=== PATIENT | female | born 1985 | race African-American/Black ===

== ENCOUNTER 2016-06-04 22:10 | Emergency (ER) | payer SELFPAY ==
[2015-11-28 18:48] VITALS: BP 123/65
== END 2016-06-04 22:50 | disposition left against medical advice (07) ==
LOC: ER 22:10
DX: R11.2 Nausea with vomiting, unspecified (principal); Z53.21 Procedure and treatment not carried out due to patient leaving prior to being seen by health care provider

== ENCOUNTER 2016-06-05 02:39 | Emergency (ER) | payer SELFPAY ==
[~2016-06-05] VITALS: Ht 157.5 cm; Wt 90.7 kg
[2016-06-05] MEDS ORDERED: IV NORMAL SALINE 1000ML BAG 1,000 ML IV SCH (03:30)
[2016-06-05 03:38] LABS: BASO # 0.1 x10^3/uL (0.0-0.2); BASO % 1 % (0-3); EOS % 0 % (0-3); HEMATOCRIT 45.1 % (36.0-47.0); LYMPH % 24 % (24-48); MEAN CORPUSCULAR HEMOGLOBIN 30 pg (25-35); MEAN CORPUSCULAR HGB CONC 33 g/dL (31-37); MEAN CORPUSCULAR VOLUME 90 fL (79-100); MONO % 8 % (0-9); NEUT % 67 % (31-73); PLATELET COUNT 399 x10^3/uL (140-400); RED CELL DISTRIBUTION WIDTH 15.6 % (11.5-14.5); WHITE BLOOD COUNT 16.8 x10^3/uL (4.0-11.0)
[2016-06-05 03:54] LABS: BILIRUBIN,URINE NEGATIVE (NEG); GLUCOSE,URINE NEGATIVE (NEG); NITRITE,URINE NEGATIVE (NEG); PROTEIN,URINE NEGATIVE (NEG-TRACE); UROBILINOGEN,URINE 0.2 mg/dL (0.2 mg/dL)
[2016-06-05 03:56] LABS: ALBUMIN 4.7 g/dL (3.4-5.0); CALCIUM 10.1 mg/dL (8.5-10.1); DIRECT BILIRUBIN 0.2 mg/dL (0.0-0.2); GFR 79.9; TOTAL BILIRUBIN 0.6 mg/dL (0.2-1.0); TOTAL PROTEIN 10.2 g/dL (6.4-8.2)
[2016-06-05 03:58] LABS: POTASSIUM 2.9 mmol/L (3.5-5.1)
[2016-06-05 03:59] LABS: BARBITURATES NEG (NEG); BENZODIAZEPINES NEG (NEG); CANNABINOIDS NEG (NEG); COCAINE NEG (NEG); ETHANOL, URINE NEG (NEG); METHADONE NEG (NEG); OPIATES NEG (NEG); PHENCYCLIDINE NEG (NEG)
[2016-06-05 04:09] LABS: BACTERIA,URINE FEW /HPF (0-FEW)
[2016-06-05 04:10] LABS: SQUAMOUS EPITHELIAL CELL,UR MOD /LPF; YEAST,URINE PRESENT /HPF
[2016-06-05] MEDS ORDERED: LORAZEPAM 2 MG/ML VIAL IV ONE (04:30)
[2016-06-05] MEDS ORDERED: POTASSIUM CHLORIDE 20 MEQ TABLET.ER. PO ONE (04:30)
--- NOTE | 2016-06-05 05:34 | PHYS DOC ---
Past Medical History Past Medical History: Asthma Past Surgical History: Other Additional Past Surgical Histo: TERATOMA Alcohol Use: Occasionally Drug Use: Marijuana Adult General Chief Complaint Chief Complaint: HEADACHE HPI HPI Patient is a 30 year old female who presents with complaint of lightheadedness and anxiety. Patient states that for the past 3 days she has been drinking large amounts of alcohol. Patient is concerned that she may have been given something else during that time. Due to worsening symptoms she came to the emergency department for evaluation. Patient states that she is having dizziness and intermittent blurring of vision. Patient states that this worsens when she tries to stand. Patient states that the symptoms resolved while at rest. Patient denies any chest pain or shortness of breath. Patient states that she is feeling "tingly all over." Review of Systems Review of Systems Constitutional: Lightheadedness, dizziness, Denies fever or chills [] Eyes: Intermittent blurry vision, denies redness or eye pain [] HENT: Denies nasal congestion or sore throat [] Respiratory: Denies cough or shortness of breath [] Cardiovascular: Denies chest pain or edema [] GI: Denies abdominal pain, nausea, vomiting, bloody stools or diarrhea [] : Denies dysuria or hematuria [] Musculoskeletal: Denies back pain or joint pain [] Integument: Denies rash or skin lesions [] Neurologic: Headache, denies focal weakness [] Current Medications Current Medications Current Medications Medications (Trade) Dose Ordered Sig/Delmy Start Time Stop Time Status Last Admin Dose Admin Lorazepam (Ativan) 1 mg 1X ONCE 06/05/16 04:30 06/05/16 04:31 DC 06/05/16 04:06 1 MG Potassium Chloride (Klor-Con) 40 meq 1X ONCE 06/05/16 04:30 06/05/16 04:31 DC 06/05/16 04:06 40 MEQ Sodium Chloride (Iv Sodium Chloride 0.9% 1000ml Bag) 1,000 ml @ 1,000 mls/hr Q1H 06/05/16 03:30 06/05/16 04:29 DC 06/05/16 03:45 1,000 MLS/HR Allergies Allergies Allergies Coded Allergies Type Severity Reaction Last Updated Verified No Known Drug Allergies 07/18/15 No Physical Exam Physical Exam Constitutional: Alert, afebrile, appears anxious. [] HENT: Normocephalic, atraumatic, bilateral external ears normal, oropharynx dry , no oral exudates, nose normal. [] Eyes: PERRLA, EOMI, conjunctiva normal, no discharge. [] Neck: Normal range of motion, no tenderness, supple, no stridor. [] Cardiovascular: Tachycardia, regular rhythm, no murmurs [] Lungs & Thorax: Bilateral breath sounds clear to auscultation [] Abdomen: Bowel sounds normal, soft, no tenderness, no masses, no pulsatile masses. [] Skin: Warm, dry, no erythema, no rash. [] Back: No tenderness, no CVA tenderness. [] Extremities: No tenderness, no cyanosis, no clubbing, ROM intact, no edema. [] Neurologic: Alert and oriented X 3, normal motor function, normal sensory function, no focal deficits noted. [] Current Patient Data Vital Signs Vital Signs Date Time Temp Pulse Resp B/P Pulse Ox O2 Delivery O2 Flow Rate FiO2 06/05/16 03:17 97.9 135 22 131/92 96 Room Air 97.9 Lab Values Laboratory Tests Test 06/05/16 03:19 06/05/16 03:20 06/05/16 03:26 POC Urine HCG, Qualitative Hcg negative (Negative) White Blood Count 16.8x10^3/uL (4.0-11.0) H Red Blood Count 5.00x10^6/uL (3.50-5.40) Hemoglobin 15.0g/dL (12.0-15.5) Hematocrit 45.1% (36.0-47.0) Mean Corpuscular Volume 90fL (79-100) Mean Corpuscular Hemoglobin 30pg (25-35) Mean Corpuscular Hemoglobin Concent 33g/dL (31-37) Red Cell Distribution Width 15.6% (11.5-14.5) H Platelet Count 399x10^3/uL (140-400) Neutrophils (%) (Auto) 67% (31-73) Lymphocytes (%) (Auto) 24% (24-48) Monocytes (%) (Auto) 8% (0-9) Eosinophils (%) (Auto) 0% (0-3) Basophils (%) (Auto) 1% (0-3) Neutrophils # (Auto) 11.2x10^3uL (1.8-7.7) H Lymphocytes # (Auto) 4.0x10^3/uL (1.0-4.8) Monocytes # (Auto) 1.3x10^3/uL (0.0-1.1) H Eosinophils # (Auto) 0.0x10^3/uL (0.0-0.7) Basophils # (Auto) 0.1x10^3/uL (0.0-0.2) Urine Collection Type Unknown Urine Color Yellow Urine Clarity Clear Urine pH 7.0 Urine Specific [place] 1.010 Urine Protein Negativemg/dL (NEG-TRACE) Urine Glucose (UA) Negativemg/dL (NEG) Urine Ketones (Stick) >=80mg/dL (NEG) Urine Blood Large (NEG) Urine Nitrite Negative (NEG) Urine Bilirubin Negative (NEG) Urine Urobilinogen Dipstick 0.2mg/dL (0.2 mg/dL) Urine Leukocyte Esterase Negative (NEG) Urine RBC 1-2/HPF (0-2) Urine WBC 5-10/HPF (0-4) Urine Squamous Epithelial Cells Mod/LPF Urine Bacteria Few/HPF (0-FEW) Urine Mucus Mod/LPF Urine Yeast Present/HPF Sodium Level 137mmol/L (136-145) Potassium Level 2.9mmol/L (3.5-5.1) *L Chloride Level 97mmol/L (98-107) L Carbon Dioxide Level 24mmol/L (21-32) Anion Gap 16 (6-14) H Blood Urea Nitrogen 9mg/dL (7-20) Creatinine 1.0mg/dL (0.6-1.0) Estimated GFR (Cockcroft-Gault) 79.9 Glucose Level 114mg/dL (70-99) H Calcium Level 10.1mg/dL (8.5-10.1) Magnesium Level 2.0mg/dL (1.8-2.4) Total Bilirubin 0.6mg/dL (0.2-1.0) Direct Bilirubin 0.2mg/dL (0.0-0.2) Aspartate Amino Transferase (AST) 18U/L (15-37) Alanine Aminotransferase (ALT) 28U/L (14-59) Alkaline Phosphatase 61U/L (46-116) Total Protein 10.2g/dL (6.4-8.2) H Albumin 4.7g/dL (3.4-5.0) Ethyl Alcohol Level < 10mg/dL (0-10) Urine Opiates Screen Neg (NEG) Urine Methadone Screen Neg (NEG) Urine Barbiturates Neg (NEG) Urine Phencyclidine Screen Neg (NEG) Urine Amphetamine/Methamphetamine Pos (NEG) Urine Benzodiazepines Screen Neg (NEG) Urine Cocaine Screen Neg (NEG) Urine Cannabinoids Screen Neg (NEG) Urine Ethyl Alcohol Neg (NEG) Laboratory Tests 06/05/16 03:20 Laboratory Tests 06/05/16 03:20 EKG EKG Interpreted by me: Heart rate 127, sinus tachycardia, normal intervals, normal axis, no acute ST/T-wave abnormalities present [] Radiology/Procedures Radiology/Procedures One view AP chest x-ray interpreted by me: No infiltrate, no effusions, normal cardiac silhouette [] Course & Med Decision Making Course & Med Decision Making Pertinent Labs and Imaging studies reviewed. (See chart for details) Patient was given IV fluids and IV Ativan in the emergency department. Patient was given oral potassium. Patient was found to have methamphetamine in her system which is causing her symptoms. Informed patient of the presence of methamphetamine. The patient maintains that she does not know how this got into her system but states that this may been given to her by her "man friend" that she had been with drinking alcohol the past 3 days. The patient states that she is feeling better with treatment. The patient will be discharged home with recommendation to abstain from any further substance abuse. Advise follow-up in 2 days with primary doctor if symptoms are not improving and return to emergency department for any worsening symptoms. Patient voiced understanding and in agreement with treatment plan. Dragon Disclaimer Dragon Disclaimer This electronic medical record was generated, in whole or in part, using a voice recognition dictation system. Departure Departure Impression: Primary Impression: Methamphetamine abuse Additional Impressions: Dehydration Hypokalemia Disposition: 01 HOME, SELF-CARE Condition: IMPROVED Referrals: NO PCP (PCP) Patient Instructions: Dehydration, Adult, Hypokalemia, Methamphetamine Abuse, Complications Additional Instructions: Follow-up with your primary doctor in 2 days. Return to the emergency department for any worsening symptoms. Problem Qualifiers TEDDY TILLMAN MD Jun 05, 2016 05:34
[2016-06-05] MEDS ORDERED: IV NORMAL SALINE 500ML BAG 500 ML IV ONE (06:00)
[2016-06-05 06:10] VITALS: BP 118/75
--- NOTE | 2016-06-05 06:22 | EKG ---
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
--- NOTE | 2016-06-05 07:05 | RAD ---
Portable chest, 06/05/2016: History: Tachycardia Comparison is made to a study from 11/28/2015. The heart size and pulmonary vascularity are normal. The lungs are clear. There is no evidence of pleural fluid. IMPRESSION: No acute cardiopulmonary abnormality is detected.
== END 2016-06-05 06:30 | disposition home or self-care (01) ==
LOC: ER 02:39
DX: E86.0 Dehydration (principal); E87.6 Hypokalemia; F15.10 Other stimulant abuse, uncomplicated; R42 Dizziness and giddiness; F12.10 Cannabis abuse, uncomplicated; J45.909 Unspecified asthma, uncomplicated; R51 Headache
CPT/HCPCS: 36415; 71010; 80048; 80076; 81001; 81025; 83735; 85027; 87086; 93005; 96360; 96361; 99285; G0480; G0481; J2060; J7030; J7040

== ENCOUNTER 2016-11-22 17:32 | Emergency (ER) | payer SELFPAY ==
[~2016-11-22] VITALS: Ht 162.6 cm; Wt 86.2 kg
[2016-11-22 18:10] VITALS: BP 127/61
[2016-11-22] MEDS ORDERED: LIDOCAINE 1% / SOD BICARB 8.4% 20 ML VIAL. IJ ONE (18:45)
[2016-11-22] MEDS ORDERED: DIPHTH,PERTUSS(ACELL),TET TOX 0.5 ML DISP.SYRIN. VAX IM ONE (18:45)
[2016-11-22] MEDS ORDERED: SULF1TAB24 PO (19:25)
--- NOTE | 2016-11-22 19:25 | PHYS DOC ---
Past Medical History Past Medical History: Asthma Past Surgical History: Other Additional Past Surgical Histo: TERATOMA Alcohol Use: Occasionally Drug Use: Marijuana Adult General Chief Complaint Chief Complaint: BREAST PROBLEM HPI HPI Patient is a 31 year old female who presents with an abscess on the right breast for one week. Patient denies any fever. Denies any drainage from the area. She states she has previous history of abscesses. Review of Systems Review of Systems Constitutional: Denies fever or chills [] Musculoskeletal: Denies back pain or joint pain [] Integument: abscess on the right breast Neurologic: Denies headache, focal weakness or sensory changes [] Current Medications Current Medications Current Medications Medications (Trade) Dose Ordered Sig/Delmy Start Time Stop Time Status Last Admin Dose Admin Diphtheria/ Tetanus/Acell Pertussis (Boostrix) 0.5 ml ONCE ONCE 11/22/16 18:45 11/22/16 18:46 DC 11/22/16 18:54 0.5 ML Lidocaine/Sodium Bicarbonate (Buffered Lidocaine 1%) 20 ml 1X ONCE 11/22/16 18:45 11/22/16 18:46 DC 11/22/16 18:53 20 ML Allergies Allergies Allergies Coded Allergies Type Severity Reaction Last Updated Verified No Known Drug Allergies 07/18/15 No Physical Exam Physical Exam Constitutional: Well developed, well nourished, no acute distress, non-toxic appearance. [] Skin: Right breast at the 1600 position has an induration approximately 3 x 1 cm at the base of the breast. The area is warm tender to palpate. The area has surrounding 2 cm of cellulitis. The area is very fluctuant. Back: No tenderness, no CVA tenderness. [] Extremities: No tenderness, no cyanosis, no clubbing, ROM intact, no edema. [] Neurologic: Alert and oriented X 3, normal motor function, normal sensory function, no focal deficits noted. [] Psychologic: Affect normal, judgement normal, mood normal. [] Current Patient Data Vital Signs Vital Signs Date Time Temp Pulse Resp B/P (MAP) Pulse Ox O2 Delivery O2 Flow Rate FiO2 11/22/16 18:10 98.3 107 16 99 Room Air 98.3 EKG EKG [] Radiology/Procedures Radiology/Procedures Indication: abscess of the right breast Procedure: The patient was positioned appropriately. Local anesthesia was 1% buffered lidocaine. An incision was then made over the apex of the lesion and small amount of bloody yellow material was expressed. The drainage cavity was irrigated and covered with sterile gauze. The patients tetanus status updated as needed. The patient tolerated the procedure well. Complications: none.[] Course & Med Decision Making Course & Med Decision Making Pertinent Labs and Imaging studies reviewed. (See chart for details) Patient has an abscess to the right breast that was partially drained by me though not well done because patient could not tolerate landing medicine. Warm compresses recommended to the area. Tetanus updated. Discharged with Bactrim. Follow-up with PCP in 1-2 weeks. Provided return precautions. Dragon Disclaimer Dragon Disclaimer This electronic medical record was generated, in whole or in part, using a voice recognition dictation system. Departure Departure Impression: Primary Impression: Abscess of right breast Disposition: 01 HOME, SELF-CARE Condition: STABLE Referrals: NO PCP (PCP) Follow-up with your doctor in 1-2 weeks Patient Instructions: Abscess, Care After Additional Instructions: You were seen for an abscess to the right breast. Keep the area clean and dry. Apply warm compresses to the area. Complete your antibiotics. Follow-up with your doctor in 1-2 weeks. Scripts Sulfamethoxazole/Trimethoprim (BACTRIM DS TABLET) 1 Each Tablet 1 TAB PO BID, #20 TAB Prov: JEROME URIBE APRN 11/22/16 JEROME URIBE APRN Nov 22, 2016 19:25
== END 2016-11-22 19:33 | disposition home or self-care (01) ==
LOC: ER 17:32
DX: N61.1 Abscess of the breast and nipple (principal); J45.909 Unspecified asthma, uncomplicated
CPT/HCPCS: 10060; 90471; 90715; 99283-25

== ENCOUNTER 2017-05-22 18:31 | Emergency (ER) | payer SELFPAY ==
[2017-05-22 20:14] LABS: ADD MAN DIFF? NO
[2017-05-22 20:16] LABS: BASO % 1 % (0-3); EOS # 0.1 x10^3/uL (0.0-0.7); EOS % 1 % (0-3); HEMATOCRIT 35.7 % (36.0-47.0); HEMOGLOBIN 12.3 g/dL (12.0-15.5); LYMPH # 2.5 x10^3/uL (1.0-4.8); LYMPH % 25 % (24-48); MEAN CORPUSCULAR HEMOGLOBIN 31 pg (25-35); MEAN CORPUSCULAR HGB CONC 34 g/dL (31-37); MEAN CORPUSCULAR VOLUME 90 fL (79-100); MONO # 0.8 x10^3/uL (0.0-1.1); MONO % 8 % (0-9); NEUT # 6.6 x10^3uL (1.8-7.7); NEUT % 66 % (31-73); PLATELET COUNT 302 x10^3/uL (140-400); RED BLOOD COUNT 3.98 x10^6/uL (3.50-5.40); RED CELL DISTRIBUTION WIDTH 14.6 % (11.5-14.5)
[2017-05-22 20:18] LABS: URINE HCG POC HCG NEGATIVE (Negative)
[2017-05-22] MEDS: ONDANSETRON PF 4 MG/2 ML VIAL. IV ×2 (20:23)
[2017-05-22] MEDS: KETOROLAC 30 MG/ML INJ. IV ×2 (20:23)
[2017-05-22] MEDS: IV NORMAL SALINE 1000ML BAG 1,000 ML IV ×2 (20:23)
[2017-05-22 20:25] LABS: ANION GAP 6 (6-14); BLOOD UREA NITROGEN 7 mg/dL (7-20); BUN/CREATININE RATIO 9 (6-20); CALCIUM 8.4 mg/dL (8.5-10.1); CARBON DIOXIDE 31 mmol/L (21-32); CHLORIDE 101 mmol/L (98-107); CREATININE 0.8 mg/dL (0.6-1.0); GFR 102.6; GLUCOSE 103 mg/dL (70-99); POTASSIUM 3.5 mmol/L (3.5-5.1); SODIUM 138 mmol/L (136-145)
[2017-05-22 20:32] LABS: ALBUMIN 3.6 g/dL (3.4-5.0); ALBUMIN/GLOBULIN RATIO 0.8 (1.0-1.7); ALK PHOS 84 U/L (46-116); ALT (SGPT) 96 U/L (14-59); AST (SGOT) 90 U/L (15-37); LIPASE 112 U/L (73-393); TOTAL BILIRUBIN 0.7 mg/dL (0.2-1.0); TOTAL PROTEIN 7.9 g/dL (6.4-8.2)
== END 2017-05-22 22:09 | disposition home or self-care (01) ==
LOC: ER 18:31
DX: K80.70 Calculus of gallbladder and bile duct without cholecystitis without obstruction (principal); J45.909 Unspecified asthma, uncomplicated; F12.10 Cannabis abuse, uncomplicated; E66.9 Obesity, unspecified; Z68.41 Body mass index [BMI] 40.0-44.9, adult
CPT/HCPCS: 36415; 76705; 80053; 81025; 83690; 85025; 96361; 96374; 96375; 99285-25; J1885; J2405; J7030

== ENCOUNTER 2017-08-29 19:38 | Emergency (ER) | payer SELFPAY ==
[2017-08-29 20:20] LABS: URINE HCG POC HCG NEGATIVE (Negative)
[2017-08-29] MEDS: IV NORMAL SALINE 1000ML BAG 1,000 ML IV (20:41)
[2017-08-29] MEDS: IOHEXOL 300 MG/ML 100ML VIAL. IV (20:45)
[2017-08-29] MEDS ORDERED: CONTRAST GIVEN MC (20:45)
[2017-08-29 20:50] LABS: ADD MAN DIFF? NO
[2017-08-29 20:54] LABS: BASO # 0.1 x10^3/uL (0.0-0.2); BASO % 0 % (0-3); BILIRUBIN,URINE NEGATIVE (NEG); CLARITY,URINE CLEAR; COLOR,URINE YELLOW; EOS # 0.1 x10^3/uL (0.0-0.7); EOS % 1 % (0-3); GLUCOSE,URINE NEGATIVE (NEG); HEMOGLOBIN 13.1 g/dL (12.0-15.5); LYMPH # 3.1 x10^3/uL (1.0-4.8); LYMPH % 22 % (24-48); MEAN CORPUSCULAR HEMOGLOBIN 30 pg (25-35); MEAN CORPUSCULAR HGB CONC 34 g/dL (31-37); MEAN CORPUSCULAR VOLUME 88 fL (79-100); MONO # 1.1 x10^3/uL (0.0-1.1); MONO % 8 % (0-9); NEUT # 9.7 x10^3uL (1.8-7.7); NEUT % 69 % (31-73); NITRITE,URINE NEGATIVE (NEG); PH,URINE 5.5; PLATELET COUNT 386 x10^3/uL (140-400); PROTEIN,URINE NEGATIVE (NEG-TRACE); RED BLOOD COUNT 4.43 x10^6/uL (3.50-5.40); RED CELL DISTRIBUTION WIDTH 14.9 % (11.5-14.5); UROBILINOGEN,URINE 0.2 mg/dL (0.2 mg/dL); WHITE BLOOD COUNT 14.1 x10^3/uL (4.0-11.0)
[2017-08-29 21:02] LABS: ANION GAP 10 (6-14); BLOOD UREA NITROGEN 10 mg/dL (7-20); CARBON DIOXIDE 28 mmol/L (21-32); CHLORIDE 100 mmol/L (98-107); CREATININE 0.9 mg/dL (0.6-1.0); GLUCOSE 104 mg/dL (70-99); POTASSIUM 3.3 mmol/L (3.5-5.1); SODIUM 138 mmol/L (136-145)
[2017-08-29 21:03] LABS: BACTERIA,URINE FEW /HPF (0-FEW); SQUAMOUS EPITHELIAL CELL,UR MOD /LPF
[2017-08-29 21:07] LABS: ALBUMIN 4.1 g/dL (3.4-5.0); ALK PHOS 68 U/L (46-116); ALT (SGPT) 25 U/L (14-59); AST (SGOT) 22 U/L (15-37); DIRECT BILIRUBIN 0.1 mg/dL (0.0-0.2); LIPASE 117 U/L (73-393); TOTAL BILIRUBIN 0.4 mg/dL (0.2-1.0); TOTAL PROTEIN 8.5 g/dL (6.4-8.2)
[2017-08-29] MEDS: AZITHROMYCIN 250 MG TABLET. PO (22:07)
[2017-08-29] MEDS: metroNIDAZOLE 500 MG TABLET PO (22:08)
[2017-08-29] MEDS: cefTRIAXone IM 250 MG VIAL IM (22:08)
== END 2017-08-29 22:20 | disposition home or self-care (01) ==
LOC: ER 19:38
DX: R10.30 Lower abdominal pain, unspecified (principal); J45.909 Unspecified asthma, uncomplicated
CPT/HCPCS: 36415; 74177; 80048; 80076; 81001; 81025; 83690; 85025; 96372; 99285-25; J0696; J7030; Q0144; Q9967

== ENCOUNTER 2018-12-21 20:08 | Emergency (ER) | payer OTHER ==
[~2018-12-21] VITALS: Ht 157.5 cm; Wt 99.8 kg
[~2018-12-21 20:08] MED LIST: CIPR500T PO; ONDA4TAB10 SL; SULF1TAB24 PO
[2018-12-21 20:20] VITALS: BP 135/85
[2018-12-21] MEDS ORDERED: methylPREDNISolone SOD SUCC PF 125 MG/2 ML VIAL. IM ONE (21:30)
[2018-12-21] MEDS ORDERED: IPRATRPIUM/ALBUTEROL 0.5/2.5MG 3 ML NEBU. NEB ONE (21:30)
[2018-12-21] MEDS ORDERED: BENZ100C PO (22:09)
[2018-12-21] MEDS ORDERED: PRED50TA PO (22:09)
--- NOTE | 2018-12-21 22:10 | PHYS DOC ---
Past Medical History Past Medical History: Asthma, Hypertension, Pancreatitis (SHILOH DURAN APRN) Past Surgical History: Cholecystectomy, Other Additional Past Surgical Histo: TERATOMA, UTERUS (SHILOH DURAN APRN) Alcohol Use: Occasionally Drug Use: None, Marijuana (SHILOH DURAN APRN) Adult General Chief Complaint Chief Complaint: ASTHMA HPI HPI Patient is a 33 year old AA female, accompanied by her significant other, with complaints of increased asthma problems for the last 3 days. Patient states she has been taking her Flovent inhaler and using her Pro Air inhalers as directed. She has also been taking Claritin as needed for allergies. She reports nasal congestion, throat clearing, post nasal drainage, bilateral ear fullness, and throat irritation in addition to wheezing and productive cough. Patient states she has coughed up yellow to clear sputum. She denies any abdominal pain, nausea, vomiting, diarrhea, palpitations, or chest pain. In this at this time. Patient currently rates her discomfort a 5 out of 10 on pain scale no alleviating factors. All other ROS is neg unless otherwise noted in HPI. (SHILOH DURAN APRN) Review of Systems Review of Systems See Above (SHILOH DURAN APRN) Current Medications Current Medications Current Medications Medications (Trade) Dose Ordered Sig/Delmy Start Time Stop Time Status Last Admin Dose Admin Albuterol/ Ipratropium (Duoneb) 3 ml 1X ONCE 12/21/18 21:30 12/21/18 21:31 DC 12/21/18 21:30 3 ML Methylprednisolone Sodium Succinate (SOLU-Medrol 125MG VIAL) 125 mg 1X ONCE 12/21/18 21:30 12/21/18 21:31 DC 12/21/18 21:44 125 MG (RICHAR BREWER DO) Allergies Allergies Allergies Coded Allergies Type Severity Reaction Last Updated Verified No Known Drug Allergies 07/18/15 No (RICHAR BREWER DO) Physical Exam Physical Exam See Above Constitutional: Well developed, well nourished, no acute distress, non-toxic appearance, obese. [] HENT: Normocephalic, atraumatic, bilateral external ears normal, bilateral TMs normal, posterior pharynx with cobblestone appearance and postnasal drainage no erythema, oropharynx moist, no oral exudates, nasal turbinates erythematous and edematous bilaterally Eyes: PERRLA, EOMI, conjunctiva normal, no discharge. [] Neck: Normal range of motion, no tenderness, supple, no stridor. [] Cardiovascular:Heart rate regular rhythm, no murmur [] Lungs & Thorax: Bilateral breath sounds inspiratory and expiratory wheezes throughout all deshpande, diminished in bilateral posterior bases; no retractions, speaking full sentences Skin: Warm, dry, no erythema, no rash. [] Back: No tenderness Extremities: No cyanosis, ROM intact, no edema. [] Neurologic: Alert and oriented X 3, no focal deficits noted. [] Psychologic: Affect normal, judgement normal, mood normal. [] (SHILOH DURAN APRN) Current Patient Data Vital Signs Vital Signs Date Time Temp Pulse Resp B/P (MAP) Pulse Ox O2 Delivery O2 Flow Rate FiO2 12/21/18 21:32 98 Room Air 12/21/18 20:20 98.8 108 18 135/85 (102) 98.8 (RICHAR BREWER DO) EKG EKG [] (SHILOH DURAN APRN) Radiology/Procedures Radiology/Procedures Patient was given 125 mg of Solu-Medrol IM and a DuoNeb breathing treatment in the emergency department. Following these interventions the patient's lung sounds improved in the bases bilaterally, scattered expiratory wheezes remain, patient reports feeling much better.[] (SHILOH DURAN APRN) Course & Med Decision Making Course & Med Decision Making Pertinent Labs and Imaging studies reviewed. (See chart for details) [] (SHILOH DURAN APRN) Dragon Disclaimer Dragon Disclaimer This electronic medical record was generated, in whole or in part, using a voice recognition dictation system. (SHILOH DURAN APRN) Departure Departure Impression: Primary Impression: Asthma exacerbation Disposition: 01 HOME, SELF-CARE Condition: STABLE Referrals: NO PCP (PCP) Patient Instructions: Asthma Prevention-Brief, Asthma, Acute Bronchospasm Additional Instructions: Fill the prescription(s) and use as directed. Recommend that you take 10 mg of generic Zyrtec (cetirizine) instead of Claritin at bedtime. aYou may take Tylenol or ibuprofen as needed for pain/fever. Increase clear fluids. Avoid triggers such as smoke, fragrance, dust, and pollen. Follow-up with your primary care doctor if symptoms persist, return to the ER if symptoms worsen. Scripts Benzonatate (TESSALON PERLE) 100 Mg Capsule 1 CAP PO TID PRN for COUGH for 7 Days, #21 CAP 0 Refills Prov: SHILOH DURAN APRN 12/21/18 Prednisone (PREDNISONE) 50 Mg Tablet 1 TAB PO DAILY, #5 TAB 0 Refills begin on 12/22/18 Prov: SHILOH DURAN APRN 12/21/18 Attending Signature Attending Signature I have reviewed the PA/LEAD JAVA J2EE DEVELOPER's note and plan of care. I was available for consulta tion as needed during the patient's visit in the emergency department. I agree with the clinical impression, plan, and disposition. (RICHAR BREWER DO) Problem Qualifiers Primary Impression: Asthma exacerbation Asthma severity: moderate Asthma persistence: unspecified Qualified Codes: J45.901 - Unspecified asthma with (acute) exacerbation SHILOH DURAN APRN Dec 21, 2018 22:10 RICHAR BREWER DO Dec 22, 2018 04:23
== END 2018-12-21 22:14 | disposition home or self-care (01) ==
LOC: ER 20:08
DX: J45.901 Unspecified asthma with (acute) exacerbation (principal); I10 Essential (primary) hypertension
CPT/HCPCS: 94640; 96372; 99283; J2930; J7620

== ENCOUNTER 2019-03-03 09:47 | Emergency (ER) | payer SELFPAY ==
[~2019-03-03] VITALS: Ht 162.6 cm; Wt 113.4 kg
[~2019-03-03 09:47] MED LIST changes: +BENZ100C PO; +PRED50TA PO
[2019-03-03 10:09] VITALS: BP 146/96
[2019-03-03] MEDS ORDERED: MECL25TA3 PO (10:23)
[2019-03-03] MEDS ORDERED: AMOX875T PO (10:23)
--- NOTE | 2019-03-03 10:24 | PHYS DOC ---
Past Medical History Past Medical History: Asthma, Hypertension, Pancreatitis Past Surgical History: Cholecystectomy, Other Additional Past Surgical Histo: TERATOMA, UTERUS Alcohol Use: Occasionally Drug Use: None, Marijuana Adult General Chief Complaint Chief Complaint: DIZZY/LIGHT HEADED HPI HPI Patient is a 33 year old female with history of asthma, hypertension, who presents to the ED today complaining of mild bilateral ear pain with dizziness intermittently for 2-1/2 weeks. Patient denies any nausea, vomiting, headache. Denies any coughing or congestion. She states symptoms are worse when she is driving as well as when she is up and moving. Review of Systems Review of Systems Constitutional: Denies fever or chills [] Eyes: Denies change in visual acuity, redness, or eye pain [] HENT: Reports bilateral ear pain. Denies nasal congestion or sore throat [] Respiratory: Denies cough or shortness of breath [] Cardiovascular: No additional information not addressed in HPI [] GI: Denies abdominal pain, nausea, vomiting, bloody stools or diarrhea [] : Denies dysuria or hematuria [] Musculoskeletal: Denies back pain or joint pain [] Integument: Denies rash or skin lesions [] Neurologic: Reports dizziness. Denies headache, focal weakness or sensory changes [] All other systems were reviewed and found to be within normal limits, except as documented in this note. Allergies Allergies Allergies Coded Allergies Type Severity Reaction Last Updated Verified No Known Drug Allergies 07/18/15 No Physical Exam Physical Exam Constitutional: Well developed, well nourished, no acute distress, non-toxic appearance. [] HENT: Normocephalic, atraumatic, bilateral external ears normal, oropharynx moist, no oral exudates, nose normal. Bilateral TM are mildly injected, the small amount of ear wax bilaterally. Eyes: PERRLA, EOMI, conjunctiva normal, no discharge. [] Neck: Normal range of motion, no tenderness, supple, no stridor. [] Cardiovascular:Heart rate regular rhythm, no murmur [] Lungs & Thorax: Bilateral breath sounds clear to auscultation [] Abdomen: Bowel sounds normal, soft, no tenderness, no masses, no pulsatile masses. [] Skin: Warm, dry, no erythema, no rash. [] Back: No tenderness, no CVA tenderness. [] Extremities: No tenderness, no cyanosis, no clubbing, ROM intact, no edema. [] Neurologic: Alert and oriented X 3, normal motor function, normal sensory function, no focal deficits noted. [] Psychologic: Affect normal, judgement normal, mood normal. [] EKG EKG [] Radiology/Procedures Radiology/Procedures [] Course & Med Decision Making Course & Med Decision Making Pertinent Labs and Imaging studies reviewed. (See chart for details) This is a 33-year-old female patient with bilateral otitis media and dizziness. Patient was discharged on amoxicillin and meclizine. Provided neurologist for follow-up. Instructed to change positions slowly. Provided return precautions and discharged in stable condition. Dragon Disclaimer Dragon Disclaimer This electronic medical record was generated, in whole or in part, using a voice recognition dictation system. Departure Departure Impression: Primary Impression: Vertigo Additional Impression: Otitis media Disposition: 01 HOME, SELF-CARE Condition: STABLE Referrals: NO PCP (PCP) GALINDO OAKES MD follow up in 1-2 weeks Patient Instructions: Otitis Media, Adult, Vertigo, [id number] Additional Instructions: You were evaluated in the emergency room for dizziness and ear infection. We put you on antibiotics, take them as prescribed until completed. We wrote you meclizine for dizziness. Take it as prescribed. Follow-up with the provided neurologist and your primary care doctor in the course of this week or next week. Your prescriptions were sent to the pharmacy. Scripts Meclizine Hcl (MECLIZINE HCL) 25 Mg Tablet 1 TAB PO TID, #30 TAB Prov: JEROME URIBE APRN 03/03/19 Amoxicillin (AMOXICILLIN) 875 Mg Tablet 1 TAB PO BID, #20 TAB Prov: JEROME URIBE APRN 03/03/19 Problem Qualifiers Additional Impression: Otitis media Otitis media type: other nonsuppurative Chronicity: acute Laterality: bilateral Recurrence: non-recurrent Qualified Codes: H65.193 - Other acute nonsuppurative otitis media, bilateral JEROME URIBE APRN Mar 03, 2019 10:24
== END 2019-03-03 10:42 | disposition home or self-care (01) ==
LOC: ER 09:47
DX: R42 Dizziness and giddiness (principal); H92.03 Otalgia, bilateral; I10 Essential (primary) hypertension; J45.909 Unspecified asthma, uncomplicated; Z90.49 Acquired absence of other specified parts of digestive tract; F12.90 Cannabis use, unspecified, uncomplicated
CPT/HCPCS: 99283

== ENCOUNTER 2019-03-20 08:12 | Emergency (ER) | payer SELFPAY ==
[~2019-03-20] VITALS: Ht 157.5 cm; Wt 86.2 kg
[~2019-03-20 08:12] MED LIST changes: +AMOX875T PO; +MECL25TA3 PO
[2019-03-20 08:15] VITALS: BP 155/79
[2019-03-20] MEDS ORDERED: IBUP-1060 PO (08:53)
[2019-03-20] MEDS ORDERED: METH4TAB2 PO (08:53)
[2019-03-20] MEDS ORDERED: TRAM-48 PO (08:53)
--- NOTE | 2019-03-20 08:53 | PHYS DOC ---
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 Patient stated edema getting worse at night and complaining of increasing pain during the night and unable to sleep. Patient states her pain is 8/10 and did not get better with [id number] ibuprofen. Patient denies injury, shortness of breath, chest pain, fever and chills, other joint edema, . Review of Systems Review of Systems Constitutional: Denies fever or chills [] Eyes: Denies change in visual acuity, redness, or eye pain [] HENT: Denies nasal congestion or sore throat [] Respiratory: Denies cough or shortness of breath [] Cardiovascular: No additional information not addressed in HPI [] GI: Denies abdominal pain, nausea, vomiting, bloody stools or diarrhea [] : Denies dysuria or hematuria [] Musculoskeletal: Denies back pain, reports joint pain [] Integument: Denies rash or skin lesions [] Neurologic: Denies headache, focal weakness or sensory changes [] Endocrine: Denies polyuria or polydipsia [] All other systems were reviewed and found to be within normal limits, except as documented in this note. Allergies Allergies Allergies Coded Allergies Type Severity Reaction Last Updated Verified No Known Drug Allergies 07/18/15 No Physical Exam Physical Exam Constitutional: Well developed, well nourished, mild distress, non-toxic ap pearance. [] HENT: Normocephalic, atraumatic. Eyes: PERRLA, EOMI, conjunctiva normal, no discharge. [] Neck: Normal range of motion, no tenderness, supple, no stridor. [] Cardiovascular:Heart rate regular rhythm, no murmur [] Lungs & Thorax: Bilateral breath sounds clear to auscultation [] Extremities: Bilateral hand 1+ edema with tenderness in joint, painful range of motion Neurologic: Alert and oriented X 3, no focal deficits noted. [] Psychologic: Affect normal, judgement normal, mood normal. [] Current Patient Data Vital Signs Vital Signs Date Time Temp Pulse Resp B/P (MAP) Pulse Ox O2 Delivery O2 Flow Rate FiO2 03/20/19 08:15 98.9 83 20 155/79 (104) 99 Room Air 98.9 EKG EKG [] Radiology/Procedures Radiology/Procedures [] Course & Med Decision Making Course & Med Decision Making Evaluation of patient in ER showed 33-year-old female patient with bilateral hand edema for 2 weeks and pain at night. 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 Patient was advised to follow up with work comp. discharge: I've spoken with the patient and/or caregivers. I've explained the patient's condition, diagnosis and treatment plan based on information available to me at this time. I've answered the patient's and/or caregivers questions and addressed any concerns. The patient and/or caregivers have a good understanding the patient's diagnosis, condition and treatment plan as can be expected at this point. Vital signs have been stabilized. The patient's condition is stable for discharge from the emergency department. The patient will pursue further outpatient evaluation with her primary care provider or other designated consulting physician as outlined in the discharge instructions. Patient and/or caregivers are agreeable to this plan of care and follow-up instructions have been explained in detail. The patient and/or caregivers have received these instructions in written format and expressed understanding of these discharge instructions. The patient and her caregivers are aware that if any significant change in condition or worsening of symptoms should prompt him to immediately return to this of the closest emergency department. If an emergent department is not readily available I would encourage him to call 911. Martin Disclaimer Dragon Disclaimer This electronic medical record was generated, in whole or in part, using a voice recognition dictation system. Departure Departure Impression: Primary Impression: Arthritis of hand Disposition: HOME, SELF-CARE (at [phone]) Condition: STABLE Referrals: NO PCP (PCP) Patient Instructions: Arthritis, Nonspecific Additional Instructions: Follow-up with work comp Follow-up with your primary care physician in 3-5 days Return to ER if not getting better Scripts Tramadol Hcl (ULTRAM) 50 Mg Tablet 50 MG PO Q6HRS PRN for PAIN, #14 TAB 0 Refills Prov: LEONARDA CARBAJAL MD 03/20/19 Methylprednisolone (MEDROL) 4 Mg Tab.ds.pk 1 PKG PO UD for inflammation, #1 PKG Prov: LEONARDA CARBAJAL MD 03/20/19 Ibuprofen (IBUPROFEN) 800 Mg Tablet 800 MG PO PRN Q8HRS PRN for INFLAMMATION, #20 TAB Prov: LEONARDA CARBAJAL MD 03/20/19 LEONARDA CARBAJAL MD Mar 20, 2019 08:53
== END 2019-03-20 09:26 | disposition home or self-care (01) ==
LOC: ER 08:12
DX: M19.041 Primary osteoarthritis, right hand (principal); M19.042 Primary osteoarthritis, left hand; J45.909 Unspecified asthma, uncomplicated; I10 Essential (primary) hypertension; Z90.49 Acquired absence of other specified parts of digestive tract; Z90.89 Acquired absence of other organs; Z98.890 Other specified postprocedural states
CPT/HCPCS: 99283

== ENCOUNTER 2019-04-26 15:05 | Emergency (ER) | payer SELFPAY ==
[~2019-04-26 15:05] MED LIST changes: +IBUP-1060 PO; +MECL-75 PO; -MECL25TA3 PO; +METH4TAB2 PO; +TRAM-48 PO
== END 2019-04-26 16:48 | disposition left against medical advice (07) ==
LOC: ER 15:05
DX: N93.9 Abnormal uterine and vaginal bleeding, unspecified (principal); Z53.21 Procedure and treatment not carried out due to patient leaving prior to being seen by health care provider

== ENCOUNTER 2021-03-18 07:13 | Emergency (ER) | payer SELFPAY ==
[~2021-03-18] VITALS: Ht 162.6 cm; Wt 97.7 kg
[~2021-03-18 07:13] MED LIST changes: -CIPR500T PO; +CIPR500T2 PO
[2021-03-18 08:36] VITALS: BP 132/75
[2021-03-18 08:51] LABS: BILIRUBIN,URINE NEGATIVE (NEG); CLARITY,URINE CLOUDY; COLOR,URINE YELLOW; NITRITE,URINE POSITIVE (NEG); PH,URINE 5.5 (<5.0-8.0); PROTEIN,URINE 100 mg/dL (NEG-TRACE); UROBILINOGEN,URINE 0.2 mg/dL (0.2 mg/dL)
--- NOTE | 2021-03-18 09:07 | ED.ADGEN ---
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 Patient denies any systemic complaints. Has had urinary tract infection in the past. Denies any vaginal bleeding or discharge. Last menstrual period 2 weeks ago. Denies any recent sexual activity. Complaining of suprapubic pain does not radiate to either side or back Review of Systems: Review of Systems: All other systems within normal limits except for as noted in the HPI Allergies: Allergies: Allergies Coded Allergies Type Severity Reaction Last Updated Verified No Known Drug Allergies 07/18/15 No Physical Exam: PE: Constitutional: Well developed, well nourished, no acute distress, non-toxic appearance. [] HENT: Normocephalic, atraumatic, bilateral external ears normal, nose normal. [] Eyes: PERRLA, conjunctiva normal, no discharge. [] Neck: No rigidity, supple, no stridor. [] Cardiovascular: Regular rate and rhythm, brisk cap refill [] Lungs & Thorax: Non labored symmetric respirations, no tachypnea or respiratory distress [] Abdomen: Soft, nondistended. Skin: Warm, dry, no erythema, no rash. [] Back: Unremarkable Extremities: No deformities, range of motion grossly intact, no lower extremity edema [] Neurologic: Alert and oriented X 3, no focal deficits noted. [] Psychologic: Affect normal, judgement normal, mood normal. [] Current Patient Data: Labs: Laboratory Tests Test 03/18/21 08:30 Urine Collection Type Unknown Urine Color Yellow Urine Clarity Cloudy Urine pH 5.5 (<5.0-8.0) Urine Specific [place] 1.025 (1.000-1.030) Urine Protein 100 mg/dL (NEG-TRACE) Urine Glucose (UA) Negative mg/dL (NEG) Urine Ketones (Stick) Negative mg/dL (NEG) Urine Blood Large (NEG) Urine Nitrite Positive (NEG) Urine Bilirubin Negative (NEG) Urine Urobilinogen Dipstick 0.2 mg/dL (0.2 mg/dL) Urine Leukocyte Esterase Large (NEG) Urine RBC 6-10 /HPF (0-2) Urine WBC >40 /HPF (0-4) Urine Squamous Epithelial Cells Occ /LPF Urine Bacteria Many /HPF (0-FEW) Urine Mucus Marked /LPF Vital Signs: Vital Signs Date Time Temp Pulse Resp B/P (MAP) Pulse Ox O2 Delivery O2 Flow Rate FiO2 03/18/21 08:36 97.9 81 18 132/75 (94) 100 Room Air 97.9 EKG: EKG: [] Heart Score: C/O Chest Pain: No Risk Factors: Risk Factors: DM, Current or recent (<one month) smoker, HTN, HLP, family history of CAD, obesity. Risk Scores: Score 0 - 3: 2.5% MACE over next 6 weeks - Discharge Home Score 4 - 6: 20.3% MACE over next 6 weeks - Admit for Clinical Observation Score 7 - 10: 72.7% MACE over next 6 weeks - Early Invasive Strategies Radiology/Procedures: Radiology/Procedures: [] Course & Med Decision Making: Course & Med Decision Making Pertinent Labs and Imaging studies reviewed. (See chart for details) [] Dragon Disclaimer: Dragon Disclaimer: This electronic medical record was generated, in whole or in part, using a voice recognition dictation system. Departure Departure Impression: Primary Impression: UTI (urinary tract infection) Disposition: HOME / SELF CARE / HOMELESS Condition: STABLE Referrals: NO PCP (PCP) Patient Instructions: Urinary Tract Infection Scripts Cephalexin (CEPHALEXIN) 500 Mg Tablet 1 TAB PO BID for antibiotic for 7 Days, #14 TAB Prov: JESUS MANUEL BECK MD 03/18/21 JESUS MANUEL BECK MD Mar 18, 2021 09:07
[2021-03-18 09:14] LABS: BACTERIA,URINE MANY /HPF (0-FEW); WBC,URINE >40 /HPF (0-4)
[2021-03-18] MEDS ORDERED: CEPH500T PO (09:27)
== END 2021-03-18 09:39 | disposition home or self-care (01) ==
LOC: ER 07:13
DX: N39.0 Urinary tract infection, site not specified (principal); I10 Essential (primary) hypertension; J45.909 Unspecified asthma, uncomplicated; Z87.891 Personal history of nicotine dependence; Z90.49 Acquired absence of other specified parts of digestive tract
CPT/HCPCS: 81001; 87086; 99283